=== PATIENT | female | born 1960 | race Caucasian/White ===

== ENCOUNTER 2017-09-29 11:20 | Day surgery (SDC) | payer BC ==
[~2017-09-29] VITALS: Ht 157.5 cm; Wt 53.0 kg
[2017-09-29 13:47] VITALS: Ht 157.5 cm; Wt 53.0 kg
[2017-09-29] MEDS ORDERED: LEVOTHYROXINE (13:53)
[2017-09-29 14:16] VITALS: BP 114/61; PULSE 82; RESP 14
--- NOTE | 2017-09-29 15:01 | OPPN ---
Date/Time of Note Date/Time of Note DATE: 09/29/17 TIME: 14:59 Operative Report Preoperative Diagnosis Positive occult blood in stool Postoperative Diagnosis Sigmoid polyp was removed Internal hemorrhoids Operation/Procedure Performed Colonoscopy and polypectomy Surgeon see signature line account assistant None Anesthesia: moderate sedation Estimated blood loss: none Transfusion Required none Specimen Sigmoid polyp Grafts/Implants none Complications none CALEB COOMBS MD Sep 29, 2017 15:01
--- NOTE | 2017-09-29 15:22 | GILP ---
DATE OF PROCEDURE: 09/29/2017 NAME OF PROCEDURES: Colonoscopy and polypectomy. SURGEON: Caleb Starr MD PREOPERATIVE DIAGNOSIS: Positive occult blood in stool. POSTOPERATIVE DIAGNOSES 1. Colonoscopy all the way to the cecum. 2. Sigmoid colon polyp was removed using the snare and electrocautery. 3. Internal hemorrhoids. INDICATION FOR THE PROCEDURE: Ms. Patti Li is a 57-year-old female patient who was schedule d for colonoscopy for further evaluation of positive occult blood in stool. The procedure and possible complications are well explained to the patient, she understood and conse nted to the procedure. DESCRIPTION OF PROCEDURE: Under the influence of fentanyl and Versed, the colonoscope was carefully introduced in the rectum and under direct vision it was advanced all the way to the cecum. FINDINGS: The patient had a sigmoid colon polyp and it was removed using the snare and electrocaute ry. She was noted to have internal hemorrhoids. She tolerated the procedure very well and there was no complication from the procedure. At the end of the procedures, she was awake with stable vital signs and she was discharged home to the care of her family. IMPRESSION: Please see postoperative diagnoses. PLAN: 1. Await histopathology report. 2. Next screening colonoscopy in 5 years. Dictated By: CALEB WATTS/ELIZABETH Conf#: [id number] DID#: [id number]
[2017-09-29 15:25] VITALS: BP 96/58; RESP 10
[2017-09-29] MEDS ORDERED: FENTAnyl 50 MCG/ML VIAL ONE (15:25)
[2017-09-29] MEDS ORDERED: MIDAZOLAM 1 MG/ML 2 ML INJ ONE ×2 (15:25)
== END 2017-09-29 19:11 | disposition home or self-care (01) ==
LOC: GIL 11:20
PROVIDERS: ATTEND Internal Medicine Gastroenterology
DX: K92.1 Melena (principal); D12.5 Benign neoplasm of sigmoid colon
CPT/HCPCS: 45385; 88305; J2250; J3010; Z7610